=== PATIENT | male | born 1990 | race Caucasian/White ===

== ENCOUNTER 2018-04-14 13:26 | Emergency (ER) | payer SELFPAY ==
[2018-04-14 13:39] VITALS: Ht 180.3 cm
[2018-04-14 14:39] VITALS: BP 125/71
== END 2018-04-14 14:39 | disposition home or self-care (01) ==
LOC: ED 13:26
DX: L25.9 Unspecified contact dermatitis, unspecified cause (principal)
CPT/HCPCS: J2930